=== PATIENT | female | born 1970 | race Caucasian/White ===

== ENCOUNTER 2018-08-17 15:51 | Emergency (ER) | payer OTHER ==
[2018-08-17 16:01] VITALS: BP 120/94; PULSE 88; TEMP 98; BMI 21.2
[2018-08-17] MEDS ORDERED: SODIUM CHLORIDE 0.9% 500 ML INFUS.BAG IV ONE ×2 (16:48→18:13)
--- NOTE | 2018-08-17 16:50 | PDOC ---
History of Present Illness - General Chief Complaint: Alcohol intoxication Stated Complaint: VOMITING Time Seen by Provider: 08/17/18 16:32 History Source: Patient, Significant Other Exam Limitations: Intoxication - History of Present Illness Initial Comments: 08/17/18 16:44 48YOF with h/o HTN (unmedicated at this time), depression, anxiety, recently started Prozac; BIBEMS for alcohol and marijuana intoxication with vomiting after having been found on the bathroom floor next to the toilet by her at 2 pm. The patient notes that she feels nauseated and tired, but she denies any new pain. She and her state that she ate a marijuana gummy at about 10 am for exacerbated chronic back pain, and it seemed to be working. They had brunch with friends, then she went upstairs in their home. The believes she began drinking red wine. He found her with red wine-appearance of vomitus in a pool beside her on the bathroom floor next to the toilet. The states she was conscious but was only moaning responses to him. Past History - Past Medical History Allergies/Adverse Reactions: Allergies Allergy/AdvReac Type Severity Reaction Status Date / Time No Known Allergies Allergy Verified 08/17/18 16:46 COPD: No Psychiatric Problems: Yes (depression) - Suicide/Smoking/Psychosocial Hx Smoking History: Never smoked Have you smoked in the past 12 months: No Information on smoking cessation initiated: No Hx Alcohol Use: Yes Drug/Substance Use Hx: No Review of Systems - Review of Systems Able to Perform ROS?: No (intoxicated) *Physical Exam - Vital Signs Last Vital Signs Temp Pulse Resp BP Pulse Ox 98 F 88 18 120/94 99 08/17/18 15:55 08/17/18 15:55 08/17/18 15:55 08/17/18 15:55 08/17/18 15:55 - Physical Exam Comments: 08/17/18 17:03 GENERAL: odor of alcohol is present, appears intoxicated, intermittently wretching, A/Ox4, mild-moderate distress, a bit evasive answering questions, at bedside, red vomitus on her tank top which has the appearance of red wine (does not appear like blood) HEENT: PERRLA, EOMI, moist mucous membranes NECK/BACK: no midline ttp, no spinal stepoff or deformity, no hematoma, full ROM , neck supple CARDIOVASCULAR: regular rate/rhythm, normal S1S2, no MGR, strong peripheral pulses, capillary refill <2 seconds, extremities wwp, no edema LUNGS/RESPIRATORY: no respiratory distress, CTAB GI/ABDOMEN: symmetric [id number], normoactive BS, soft, no ttp, no midline pulsatile masses : no CVA tenderness EXTREMITIES: no muscle atrophy, no acute deformity SKIN: warm and dry, no pallor, no jaundice, no rash, no bruising, no skin breakdown, no cuts, no lesions NEUROLOGICAL: GCS 15, CN II-XII grossly intact, 5/5 strength proximally and distally, no facial droop, no truncal ataxia, gait not tested Moderate Sedation - Procedure Monitoring Vital Signs: Procedure Monitoring Vital Signs Temperature 98 F 08/17/18 15:55 Pulse Rate 88 08/17/18 15:55 Respiratory Rate 18 08/17/18 15:55 Blood Pressure 120/94 08/17/18 15:55 O2 Sat by Pulse Oximetry (%) 99 08/17/18 15:55 ED Treatment Course - LABORATORY CBC & Chemistry Diagram: 08/17/18 16:51 08/17/18 16:51 Medical Decision Making - Medical Decision Making 08/17/18 17:07 Pt p/w intoxication after found her on the bathroom floor, ALOC, with vomitus. states she is currently back to mental baseline except intoxicated. Initial Vital Signs Temp Pulse Resp BP Pulse Ox 98 F 88 18 120/94 99 08/17/18 15:55 08/17/18 15:55 08/17/18 15:55 08/17/18 15:55 08/17/18 15:55 Exam: As noted in Physical Exam section. DDX IBNLT: scalp contusion, concussion, ICH, skull fracture, facial bone fracture W/U ordered: Head and C-spine CT, labs as noted below, EKG (patient on multiple medications and vomiting; clearance for Zofran) TX ordered: IVF, Zofran EKG: Reviewed; results as noted in ECG Review section. Laboratory Tests 08/17/18 08/17/18 08/17/18 16:50 16:51 16:51 WBC 6.8 RBC 4.51 Hgb 13.5 Hct 38.6 MCV 85.5 MCH 29.9 MCHC 35.0 RDW 12.6 Plt Count 235 MPV 7.4 L Absolute Neuts (auto) 5.7 Neutrophils % 84.4 H Lymphocytes % 11.7 Monocytes % 2.7 L Eosinophils % 0.7 Basophils % 0.5 Nucleated RBC % 0 Sodium 139 Potassium 4.2 Chloride 104 Carbon Dioxide 26 Anion Gap 9 BUN 7 Creatinine 0.6 Creat Clearance w eGFR > 60 Random Glucose 118 H Calcium 8.4 L Magnesium 2.2 Total Bilirubin 0.2 AST 17 ALT 17 Alkaline Phosphatase 71 Total Protein 7.0 Albumin 4.1 Serum , Qual Negative Salicylates 4.5 Opiates Screen Methadone Screen Acetaminophen < 2.0 L Barbiturate Screen Phencyclidine Screen Ur Amphetamines Screen MDMA (Ecstasy) Screen Benzodiazepines Screen Cocaine Screen U Marijuana (THC) Screen Alcohol, Quantitative 257.6 H 08/17/18 16:51 WBC RBC Hgb Hct MCV MCH MCHC RDW Plt Count MPV Absolute Neuts (auto) Neutrophils % Lymphocytes % Monocytes % Eosinophils % Basophils % Nucleated RBC % Sodium Potassium Chloride Carbon Dioxide Anion Gap BUN Creatinine Creat Clearance w eGFR Random Glucose Calcium Magnesium Total Bilirubin AST ALT Alkaline Phosphatase Total Protein Albumin Serum , Qual Salicylates Opiates Screen Negative Methadone Screen Negative Acetaminophen Barbiturate Screen Negative Phencyclidine Screen Negative Ur Amphetamines Screen Negative MDMA (Ecstasy) Screen Negative Benzodiazepines Screen Negative Cocaine Screen Negative U Marijuana (THC) Screen Positive A* Alcohol, Quantitative 08/17/18 19:[address]: Nothing acute. CSCT: Nothing acute. Patient's care is endorsed to [facility] team resident pending sobriety. *DC/Admit/Observation/Transfer Diagnosis at time of Disposition: Intoxication - Discharge Dispostion Disposition: HOME Condition at time of disposition: Improved - Referrals - Patient Instructions Printed Discharge Instructions: DI for Alcohol Abuse Additional Instructions: You were seen in the ER for intoxication, vomiting, and a possible fall. We did an exam, labs, imaging studies, and an electrocardiogram. We gave you fluids and medications here in the ER. After our assessment, we do not believe you are having a medical emergency at this time, and we believe you are safe to go home. Please avoid any alcohol or marijuana. Please follow up with your primary care provider in 1-3 days. Call their clinic, tell them you were seen in the er , and tell them you need a follow-up. If you have any new or worsening symptoms , please come back to the ER at any time (24 hours a day). If you are having severe or life threatening symptoms, or symptoms that make it unsafe to drive or have someone drive you, please call 911. - Post Discharge Activity
[2018-08-17 17:05] LABS: BASO % 0.5 % (0-2.0); EOS % 0.7 % (0-4.5); HEMATOCRIT 38.6 % (32.4-45.2); HEMOGLOBIN 13.5 GM/dL (10.7-15.3); LYMPH % 11.7 % (8-40); MCH 29.9 pg (25.7-33.7); MEAN CELL VOLUME 85.5 fl (80-96); MEAN PLT VOLUME 7.4 fl (7.5-11.1); MONO % 2.7 % (3.8-10.2); NEUT % 84.4 % (42.8-82.8); PLATELET COUNT 235 K/MM3 (134-434); RBC 4.51 M/mm3 (3.60-5.2); RDW 12.6 % (11.6-15.6); WHITE BLOOD COUNT 6.8 K/mm3 (4.0-10.0)
[2018-08-17 17:33] LABS: ALBUMIN 4.1 g/dl (3.4-5.0); ALK PHOS 71 U/L (45-117); ANION GAP 9 MMOL/L (8-16); BILIRUBIN,TOTAL 0.2 mg/dL (0.2-1); BLOOD UREA NITROGEN 7 mg/dL (7-18); CALCIUM 8.4 mg/dL (8.5-10.1); CHLORIDE 104 mmol/L (98-107); CO2 26 mmol/L (21-32); CREATININE 0.6 mg/dL (0.55-1.3); GLUCOSE,RANDOM 118 mg/dL (74-106); MAGNESIUM 2.2 mg/dL (1.8-2.4); POTASSIUM 4.2 mmol/L (3.5-5.1); SGOT/AST 17 U/L (15-37); SGPT/ALT 17 U/L (13-61); SODIUM 139 mmol/L (136-145)
[2018-08-17 18:08] LABS: COCAINE, UR NEGATIVE ng/ml (CUTOFF=300); METHADONE, UR NEGATIVE ng/ml (CUTOFF=300); OPIATES, URI NEGATIVE ng/ml (CUTOFF=300); PHENCYCLIDINE,URINE NEGATIVE ng/ml (CUTOFF=25); URINE BARBITURATES NEGATIVE ng/ml (CUTOFF=200); URINE BENZODIAZEPINES NEGATIVE ng/ml (CUTOFF=200)
[2018-08-17 18:09] LABS: URINE AMPHETAMINES NEGATIVE ng/ml (CUTOFF=500)
[2018-08-17] MEDS ORDERED: ONDANSETRON 4 MG/2 ML VIAL IVPUSH ONE (18:14)
--- NOTE | 2018-08-17 19:14 | PDOC ---
Attending Attestation - Resident Resident Name: Florinda Tirado - ED Attending Attestation I have performed the following: I have examined & evaluated the patient, The case was reviewed & discussed with the resident, I agree w/resident's findings & plan, Exceptions are as noted - HPI HPI: 08/17/18 19:07 The patient is a 48 year old female with a significant past medical history of HTN, depression, anxiety (takes Prozac) who was BIBA for vomiting and alcohol and marijuana intoxication. The patient reports to have taken a marijuana gummy by her for her back pain. As per , he reports he found her on the bathroom floor upstairs lying in a pool of vomit with the presence of red wine in her vomit. The patient was arousable and moaning on the floor. The patient states she does not usually drink and was not intending on hurting herself. Currently in the ED, she complains of nausea. Denies any fever, chills , cp, SOB, papitations, focal weakness/numbness, or urinary complaints. - Physicial Exam PE: 08/17/18 19:10 agree with resident exam - Medical Decision Making 08/17/18 19:10 48yo F presents to the ED after being found on the ground in a pool of vomit after drinking a lot of wine and taking a marijuana gummy. No evidence of trauma on initial eval. Pt is clinically intoxicated on arrival to the ED. Alcohol level in 200s, remaining labs within nl. Plan for traumatic w/u with CTH /CT-c spine. Will plan to observe pt for clinical sobriety and re-evaluation at that time for other traumatic injury. Case signed out to overnight attending for further mgmt/dispo. Heart Score/ECG Review #1 08/17/18 19:14 Twelve-lead EKG was performed and reviewed by me. Normal sinus rhythm, rate 88. Normal axis. Order line prolonged QTC. No ST elevations.
--- NOTE | 2018-08-17 19:33 | PDOC ---
*Physical Exam - Vital Signs Last Vital Signs Temp Pulse Resp BP Pulse Ox 98 F 88 18 120/94 99 08/17/18 15:55 08/17/18 15:55 08/17/18 15:55 08/17/18 15:55 08/17/18 15:55 - Physical Exam Comments: 08/17/18 20:29 AOx3 <ManiprincessGeneva - Last Filed: 08/17/18 20:29> - Vital Signs Last Vital Signs Temp Pulse Resp BP Pulse Ox 98 F 88 18 120/94 99 08/17/18 15:55 08/17/18 15:55 08/17/18 15:55 08/17/18 15:55 08/17/18 15:55 <Larissa Soler - Last Filed: 08/17/18 21:30> ED Treatment Course - LABORATORY CBC & Chemistry Diagram: 08/17/18 16:51 08/17/18 16:51 - ADDITIONAL ORDERS Additional order review: Laboratory Results 08/17/18 08/17/18 08/17/18 16:51 16:51 16:50 Sodium 139 Potassium 4.2 Chloride 104 Carbon Dioxide 26 Anion Gap 9 BUN 7 Creatinine 0.6 Creat Clearance w eGFR > 60 Random Glucose 118 H Calcium 8.4 L Magnesium 2.2 Total Bilirubin 0.2 AST 17 ALT 17 Alkaline Phosphatase 71 Total Protein 7.0 Albumin 4.1 Lipase Serum , Qual Negative Salicylates 4.5 Opiates Screen Negative Methadone Screen Negative Acetaminophen < 2.0 L Barbiturate Screen Negative Phencyclidine Screen Negative Ur Amphetamines Screen Negative MDMA (Ecstasy) Screen Negative Benzodiazepines Screen Negative Cocaine Screen Negative U Marijuana (THC) Screen Positive A* Alcohol, Quantitative 257.6 H 08/17/18 16:50 Sodium Potassium Chloride Carbon Dioxide Anion Gap BUN Creatinine Creat Clearance w eGFR Random Glucose Calcium Magnesium Total Bilirubin AST ALT Alkaline Phosphatase Total Protein Albumin Lipase 207 Serum , Qual Salicylates Opiates Screen Methadone Screen Acetaminophen Barbiturate Screen Phencyclidine Screen Ur Amphetamines Screen MDMA (Ecstasy) Screen Benzodiazepines Screen Cocaine Screen U Marijuana (THC) Screen Alcohol, Quantitative 08/17/18 16:51 RBC 4.51 MCV 85.5 MCHC 35.0 RDW 12.6 MPV 7.4 L Neutrophils % 84.4 H Lymphocytes % 11.7 Monocytes % 2.7 L Eosinophils % 0.7 Basophils % 0.5 - Medications Given in the ED: ED Medications Discontinued Medications Generic Name Dose Route Start Last Admin Trade Name Freq PRN Reason Stop Dose Admin Sodium Chloride 1,000 ml 08/17/18 16:48 08/17/18 17:06 Normal Saline - IV 08/17/18 16:49 1,000 ml ONCE ONE Administration <ParishkendraGeneva - Last Filed: 08/17/18 20:29> - LABORATORY CBC & Chemistry Diagram: 08/17/18 16:51 08/17/18 16:51 - ADDITIONAL ORDERS Additional order review: Laboratory Results 08/17/18 08/17/18 08/17/18 16:51 16:51 16:50 Sodium 139 Potassium 4.2 Chloride 104 Carbon Dioxide 26 Anion Gap 9 BUN 7 Creatinine 0.6 Creat Clearance w eGFR > 60 Random Glucose 118 H Calcium 8.4 L Magnesium 2.2 Total Bilirubin 0.2 AST 17 ALT 17 Alkaline Phosphatase 71 Total Protein 7.0 Albumin 4.1 Lipase Serum , Qual Negative Salicylates 4.5 Opiates Screen Negative Methadone Screen Negative Acetaminophen < 2.0 L Barbiturate Screen Negative Phencyclidine Screen Negative Ur Amphetamines Screen Negative MDMA (Ecstasy) Screen Negative Benzodiazepines Screen Negative Cocaine Screen Negative U Marijuana (THC) Screen Positive A* Alcohol, Quantitative 257.6 H 08/17/18 16:50 Sodium Potassium Chloride Carbon Dioxide Anion Gap BUN Creatinine Creat Clearance w eGFR Random Glucose Calcium Magnesium Total Bilirubin AST ALT Alkaline Phosphatase Total Protein Albumin Lipase 207 Serum , Qual Salicylates Opiates Screen Methadone Screen Acetaminophen Barbiturate Screen Phencyclidine Screen Ur Amphetamines Screen MDMA (Ecstasy) Screen Benzodiazepines Screen Cocaine Screen U Marijuana (THC) Screen Alcohol, Quantitative 08/17/18 16:51 RBC 4.51 MCV 85.5 MCHC 35.0 RDW 12.6 MPV 7.4 L Neutrophils % 84.4 H Lymphocytes % 11.7 Monocytes % 2.7 L Eosinophils % 0.7 Basophils % 0.5 - Medications Given in the ED: ED Medications Discontinued Medications Generic Name Dose Route Start Last Admin Trade Name Freq PRN Reason Stop Dose Admin Ondansetron HCl 8 mg 08/17/18 18:14 08/17/18 20:20 Zofran Injection IVPUSH 08/17/18 18:15 8 mg NOW ONE Administration Sodium Chloride 1,000 ml 08/17/18 16:48 08/17/18 17:06 Normal Saline - IV 08/17/18 16:49 1,000 ml ONCE ONE Administration Sodium Chloride 1,000 ml 08/17/18 18:13 08/17/18 20:20 Normal Saline - IV 08/17/18 18:14 1,000 ml ONCE ONE Administration <Larissa Soler - Last Filed: 08/17/18 21:30> Medical Decision Making - Medical Decision Making 08/17/18 19:33 Patient signed out by resident Dr. Tirado 08/17/18 20:29 Patient assessed, feels improved and sober, eager to leave. <Geneva Carson - Last Filed: 08/17/18 20:29> *DC/Admit/Observation/Transfer <Geneva Carson - Last Filed: 08/17/18 20:29> - Discharge Dispostion Decision to Admit order: No <Larissa Soler - Last Filed: 08/17/18 21:30> Diagnosis at time of Disposition: Intoxication - Discharge Dispostion Disposition: HOME Condition at time of disposition: Improved - Patient Instructions Printed Discharge Instructions: DI for Alcohol Abuse Additional Instructions: You were seen in the ER for intoxication, vomiting, and a possible fall. We did an exam, labs, imaging studies, and an electrocardiogram. We gave you fluids and medications here in the ER. After our assessment, we do not believe you are having a medical emergency at this time, and we believe you are safe to go home. Please avoid any alcohol or marijuana. Please follow up with your primary care provider in 1-3 days. Call their clinic, tell them you were seen in the er , and tell them you need a follow-up. If you have any new or worsening symptoms , please come back to the ER at any time (24 hours a day). If you are having severe or life threatening symptoms, or symptoms that make it unsafe to drive or have someone drive you, please call 911.
--- NOTE | 2018-08-17 19:53 | PDOC ---
*Physical Exam - Vital Signs Last Vital Signs Temp Pulse Resp BP Pulse Ox 98 F 88 18 120/94 99 08/17/18 15:55 08/17/18 15:55 08/17/18 15:55 08/17/18 15:55 08/17/18 15:55 ED Treatment Course - LABORATORY CBC & Chemistry Diagram: 08/17/18 16:51 08/17/18 16:51 - ADDITIONAL ORDERS Additional order review: Laboratory Results 08/17/18 08/17/18 08/17/18 16:51 16:51 16:50 Sodium 139 Potassium 4.2 Chloride 104 Carbon Dioxide 26 Anion Gap 9 BUN 7 Creatinine 0.6 Creat Clearance w eGFR > 60 Random Glucose 118 H Calcium 8.4 L Magnesium 2.2 Total Bilirubin 0.2 AST 17 ALT 17 Alkaline Phosphatase 71 Total Protein 7.0 Albumin 4.1 Lipase Serum , Qual Negative Salicylates 4.5 Opiates Screen Negative Methadone Screen Negative Acetaminophen < 2.0 L Barbiturate Screen Negative Phencyclidine Screen Negative Ur Amphetamines Screen Negative MDMA (Ecstasy) Screen Negative Benzodiazepines Screen Negative Cocaine Screen Negative U Marijuana (THC) Screen Positive A* Alcohol, Quantitative 257.6 H 08/17/18 16:50 Sodium Potassium Chloride Carbon Dioxide Anion Gap BUN Creatinine Creat Clearance w eGFR Random Glucose Calcium Magnesium Total Bilirubin AST ALT Alkaline Phosphatase Total Protein Albumin Lipase 207 Serum , Qual Salicylates Opiates Screen Methadone Screen Acetaminophen Barbiturate Screen Phencyclidine Screen Ur Amphetamines Screen MDMA (Ecstasy) Screen Benzodiazepines Screen Cocaine Screen U Marijuana (THC) Screen Alcohol, Quantitative 08/17/18 16:51 RBC 4.51 MCV 85.5 MCHC 35.0 RDW 12.6 MPV 7.4 L Neutrophils % 84.4 H Lymphocytes % 11.7 Monocytes % 2.7 L Eosinophils % 0.7 Basophils % 0.5 - Medications Given in the ED: ED Medications Discontinued Medications Generic Name Dose Route Start Last Admin Trade Name Freq PRN Reason Stop Dose Admin Sodium Chloride 1,000 ml 08/17/18 16:48 08/17/18 17:06 Normal Saline - IV 08/17/18 16:49 1,000 ml ONCE ONE Administration Medical Decision Making - Medical Decision Making 08/17/18 19:50 Patient Name: MOUSTAPHA SOTOMAYOR THIS IS A PRELIMINARY REPORT FROM [facility] [employer] [facility] [facility] [employer] DATE OF SERVICE: 2018-08-17 18:37:18 IMAGES: [id number] Exam: CT head without IV contrast. Clinical indication:Fall. Comparison:None available. Technique: Axial unenhanced CT images from the skull base through the brain were obtained followed by coronal and sagital reformats. Findings: The visualized bony structures are unremarkable. There is some mild mucosal thickening within the bilateral maxillary sinuses greater on the left than the right consistent with chronic sinusitis. Otherwise, the visualized paranasal sinuses and mastoid air cells are clear. There is no evidence of intra-or extra-axial hemorrhage. The ventricles and basilar cisterns are unremarkable. There is no evidence of intracranial mass, acute infarct, or midline shift. Impression: 1. Chronic bilateral maxillary sinusitis. 2. Otherwise, negative unenhanced CT of the brain. Patient Name: MOUSTAPHA SOTOMAYOR THIS IS A PRELIMINARY REPORT FROM [facility] [employer] [facility] [facility] [employer] DATE OF SERVICE: 2018-08-17 18:29:38 IMAGES: [id number] Exam: CT cervical spine without IV contrast. Clinical indication:Fall. Rule out fracture. Prior studies:None available. Technique: Axial unenhanced CT images from the upper thoracic spine through the skull base were obtained followed by coronal and sagittal reformats. Findings: There is no prevertebral soft tissue swelling. There is reversal of the normal cervical lordosis centered on the C5 vertebral body level. Otherwise, the alignment of the cervical spine is within normal limits. The odontoid is intact. The atlantooccipital and atlantoaxial articulations are properly situated. There are no cervical fractures or dislocations. There is some mild degenerative disc disease at the C5-C6 and C6-C7 levels. Otherwise, the disc spaces are well-maintained. Visualized pulmonary parenchyma and soft tissues are unremarkable. Impression: 1. No acute cervical fracture. 2.. Reversal of the normal cervical lordosis centered on the C5 level with some mild degenerative disc disease. 08/17/18 21:30 is demanding to take home. She is stable. He understands that she is intoxicated and that there is risk to taking her home; understands that she may aspirate. He will monitor her and will assume responsibility when he signs the papers to take her home. *DC/Admit/Observation/Transfer Diagnosis at time of Disposition: Intoxication - Discharge Dispostion Disposition: HOME Condition at time of disposition: Improved - Referrals - Patient Instructions Printed Discharge Instructions: DI for Alcohol Abuse Additional Instructions: You were seen in the ER for intoxication, vomiting, and a possible fall. We did an exam, labs, imaging studies, and an electrocardiogram. We gave you fluids and medications here in the ER. After our assessment, we do not believe you are having a medical emergency at this time, and we believe you are safe to go home. Please avoid any alcohol or marijuana. Please follow up with your primary care provider in 1-3 days. Call their clinic, tell them you were seen in the er , and tell them you need a follow-up. If you have any new or worsening symptoms , please come back to the ER at any time (24 hours a day). If you are having severe or life threatening symptoms, or symptoms that make it unsafe to drive or have someone drive you, please call 911. - Post Discharge Activity
[2018-08-17] MEDS ORDERED: ONDANSETRON 4 MG/2 ML VIAL ONE (20:11)
--- NOTE | 2018-08-18 12:16 | EKG ---
Test Reason : Blood Pressure : / mmHG Vent. Rate : 088 BPM Atrial Rate : 088 BPM P-R Int : 132 ms QRS Dur : 096 ms QT Int : 422 ms P-R-T Axes : 066 037 049 degrees QTc Int : 510 ms NORMAL SINUS RHYTHM PROLONGED QT ABNORMAL ECG NO PREVIOUS ECGS AVAILABLE Confirmed by RAGHAV ZAMUDIO MD ([id number]) on 08/18/2018 12:16:00 PM Referred By: Confirmed By:RAGHAV ZAMUDIO MD
== END 2018-08-17 21:51 | disposition home or self-care (01) ==
LOC: JER 15:51
PROC: 3E033GC Introduction of Other Therapeutic Substance into Peripheral Vein, Percutaneous Approach (ICD-10-PCS; principal; 2018-08-17)
DX: F10.120 Alcohol abuse with intoxication, uncomplicated (principal); Y90.8 Blood alcohol level of 240 mg/100 ml or more; F12.10 Cannabis abuse, uncomplicated; I10 Essential (primary) hypertension; F41.8 Other specified anxiety disorders; F32.9 Major depressive disorder, single episode, unspecified
CPT/HCPCS: 36415; 70450-TC; 72125-TC; 80053; 80307; 83690; 83735; 84703; 85025; 93005; 93010; 99282-25; 99284-25

== ENCOUNTER 2021-09-01 08:34 | Emergency (ER) | payer OTHER ==
[2021-09-01 08:40] VITALS: TEMP 98.7; BMI 20.2
[2021-09-01] MEDS ORDERED: SODIUM CHLORIDE 0.9% 500 ML INFUS.BAG IV ONE (08:51)
[2021-09-01 09:29] LABS: ALBUMIN 4.2 g/dl (3.4-5.0); BILIRUBIN,TOTAL 1.3 mg/dl (0.2-1); CALCIUM 9.6 mg/dl (8.5-10); CREATININE 0.7 mg/dl (0.55-1.3)
[2021-09-01 09:47] LABS: BASO % 1.1 % (0-2.0); EOS % 1.7 % (0-4.5); HEMATOCRIT 41.8 % (32.4-45.2); HEMOGLOBIN 14.3 GM/dL (10.7-15.3); MCH 28.6 pg (25.7-33.7); MCHC 34.3 g/dl (32.0-36.0); MEAN CELL VOLUME 83.4 fl (80-96); MEAN PLT VOLUME 7.9 fl (7.5-11.1); MONO % 8.1 % (3.8-10.2); NEUT % 49.1 % (42.8-82.8); PLATELET COUNT 238 10^3/uL (134-434); RBC 5.02 M/mm3 (3.60-5.2); RDW 14.1 % (11.6-15.6); WHITE BLOOD COUNT 3.5 K/mm3 (4.0-10.0)
[2021-09-01 11:02] VITALS: BP 130/75; PULSE 70
== END 2021-09-01 12:46 | disposition home or self-care (01) ==
LOC: FER 08:34
DX: R07.9 Chest pain, unspecified (principal)
CPT/HCPCS: 36415; 71045-TC-FY; 71275-TC; 80053; 84484; 85025; 93005; 99284-25